=== PATIENT | male | born 1955 | race Two or more races ===

== ENCOUNTER 2018-10-02 15:14 | Outpatient (CLI) | payer OTHER | END 2018-10-02 15:26 | disposition home or self-care (01) | LOC: RAD 501 15:14 | DX: M25.562 Pain in left knee (principal) ==

== ENCOUNTER 2018-11-01 10:35 | Outpatient (CLI) | payer OTHER ==
[2018-11-01] MEDS ORDERED: ASA81 MG PO (13:23)
[2018-11-01] MEDS ORDERED: LOSARTAN-HCTZ1 EAC2 PO (13:23)
[2018-11-02] MEDS ORDERED: HYZAAR 100-12.1 EACH PO (08:16)
== END 2018-11-01 10:48 | disposition home or self-care (01) ==
LOC: LAB 10:35
DX: D64.89 Other specified anemias (principal); E88.89 Other specified metabolic disorders; D68.8 Other specified coagulation defects; N39.0 Urinary tract infection, site not specified; Z22.322 Carrier or suspected carrier of Methicillin resistant Staphylococcus aureus; Z76.89 Persons encountering health services in other specified circumstances; I49.8 Other specified cardiac arrhythmias

== ENCOUNTER 2018-11-06 05:30 | Day surgery (SDC) | payer OTHER ==
[~2018-11-06 05:30] MED LIST: ASA81 MG PO; HYZAAR 100-12.1 EACH PO; LOSARTAN-HCTZ1 EAC2 PO
== END 2018-11-06 13:30 | disposition home or self-care (01) ==
LOC: CIR.AMB 05:30
DX: M23.322 Other meniscus derangements, posterior horn of medial meniscus, left knee (principal); M23.342 Other meniscus derangements, anterior horn of lateral meniscus, left knee; M17.12 Unilateral primary osteoarthritis, left knee; M22.12 Recurrent subluxation of patella, left knee; M12.262 Villonodular synovitis (pigmented), left knee

== ENCOUNTER 2018-12-07 16:56 | Outpatient (CLI) | payer OTHER | END 2018-12-07 17:25 | disposition home or self-care (01) | LOC: LAB 16:56 | DX: M25.462 Effusion, left knee (principal) ==